=== PATIENT | female | born 1955 | race Hispanic/Latino ===

== ENCOUNTER 2022-11-12 14:52 | Emergency (ER) | payer MEDICARE, OTHER, SELFPAY ==
[2022-11-12 15:10] VITALS: BP 130/92; PULSE 92; RESP 16; TEMP 36.3; O2SAT 100
--- NOTE | 2022-11-12 16:11 | ED.LOWEXIN ---
HPI - Extremity Injury (Lower) General Chief Complaint: Skin/Abscess/Foreign Body Stated Complaint: Left Foot Toe Pain Time Seen by Provider: 11/12/22 16:03 Source: patient and RN notes reviewed Mode of arrival: ambulatory Limitations: no limitations History of Present Illness HPI Narrative: Patient presents today complaining of a one-week history of pain, redness and itching between her left 4th and 5th toes, with a 6 day history of clear drainage between the toes. She has tried medicated powder and diaper barrier cream without relief. Prior to onset of symptoms patient had a pedicure at a nail salon. Related Data Home Medications Medication Instructions Recorded Confirmed aspirin 81 mg tablet,delayed mg 11/12/22 release biotin 1 mg tablet 1 mg PO DAILY 11/12/22 11/12/22 carvedilol phosphate 20 mg mg PO 11/12/22 capsule,[id number] multiphase (Coreg CR) coffee extract 100 mg-phosphatidyl cap PO 11/12/22 serine 100 mg capsule (Neuriva Original) cyanocobalamin (vitamin B-12) 50 50 mcg PO DAILY 11/12/22 11/12/22 mcg tablet (Vitamin B-12) dulaglutide 1.5 mg/0.5 mL mg subcut 11/12/22 subcutaneous pen injector (Trulicity) empagliflozin 25 mg tablet mg 11/12/22 (Jardiance) levothyroxine 100 mcg tablet mcg 11/12/22 (Synthroid) loratadine 10 mg tablet mg 11/12/22 magnesium oxide 400 mg (241.3 mg mg 11/12/22 magnesium) tablet metformin 1,000 mg tablet mg 11/12/22 rosuvastatin 20 mg tablet mg 11/12/22 sacubitril 24 mg-valsartan 26 mg tablet 11/12/22 tablet (Entresto) Allergies Allergy/AdvReac Type Severity Reaction Status Date / Time benzocaine Allergy Swelling Verified 11/12/22 15:13 Review of Systems Review of Systems: CONSTITUTIONAL: Denies body aches, fever, chills, or sweats. EYES: Denies visual changes, redness, or discharge. ENT: Denies rhinorrhea, congestion, sore throat, or otalgia. CARDIOVASCULAR: Denies chest pain, palpitations, or edema. RESPIRATORY: Denies cough or dyspnea. GASTROINTESTINAL: Denies abdominal pain, nausea, vomiting, or diarrhea. GENITOURINARY: Denies dysuria or hematuria. SKIN: + redness, drainage, pain of left foot MUSCULOSKELETAL: Denies back pain, joint pain, or myalgia. NEUROLOGIC: Denies headache, numbness, tingling, or weakness. PSYCH: Denies depression or anxiety. PMFSH Comments At time of signature, I have reviewed and agree with nursing past medical, surgical, social and family history unless otherwise noted. Please see nursing chart for further information. There is no relevant family history pertinent to the presenting complaint Exam Narrative: GENERAL: Well-appearing, well-nourished, and in no acute distress. HEAD: Normocephalic, atraumatic. EYES: EOMI. No redness or drainage. Conjunctivae normal. ENT: Mucous membranes pink and moist. NECK: Normal AROM. CHEST: No respiratory distress. EXTREMITIES: Normal range of motion. No edema. SKIN: Capillary refill normal. Normal skin turgor. Left foot: Macerated beefy redness to the skin between the left 4th and 5th toes with peeling skin skin around the edges. This area is draining clear fluid. No edema noted. No red streaking noted. Tender to palpation. NEURO: No focal deficits. Alert and oriented x3. Gait steady. PSYCH: Normal affect. No signs of depression or anxiety. Course Course Level of Care: Express Care Visit Vital Signs Vital signs: Vital Signs Temperature 97.4 F L 11/12/22 15:10 Pulse Rate 92 11/12/22 15:10 Respiratory Rate 16 11/12/22 15:10 Blood Pressure 130/92 H 11/12/22 15:10 Pulse Oximetry 100 11/12/22 15:10 Oxygen Delivery Room Air 11/12/22 15:10 Temperature 97.4 F L 11/12/22 15:10 Pulse Rate 92 11/12/22 15:10 Respiratory Rate 16 11/12/22 15:10 Blood Pressure 130/92 H 11/12/22 15:10 Pulse Oximetry 100 11/12/22 15:10 Oxygen Delivery Room Air 11/12/22 15:10 Reviewed. Pt has been instruct
== END 2022-11-12 16:20 | disposition home or self-care (01) ==
PROVIDERS: Emergency Provider Nurse Practitioner
DX: L03.116 Cellulitis of left lower limb (principal); E78.00 Pure hypercholesterolemia, unspecified; I10 Essential (primary) hypertension; E11.9 Type 2 diabetes mellitus without complications; E03.9 Hypothyroidism, unspecified
CPT/HCPCS: 99213; G0463